=== PATIENT | female | born 1975 | race Two or more races ===

== ENCOUNTER 2021-11-18 12:15 | Inpatient (IN) | payer OTHER ==
[~2021-11-18] VITALS: Ht 162.6 cm; Wt 85.7 kg
[2021-11-19] MEDS ORDERED: ELIQUIS2.5 MG PO (08:00)
[2021-11-19] MEDS ORDERED: MIDODRINE HCL10 MG PO (08:01)
[2021-11-19] MEDS ORDERED: ADVIL PO (08:02)
[2021-11-19] MEDS ORDERED: HORIZANT300 MG PO (08:02)
[2021-11-19] MEDS ORDERED: VITAMIN D PO (08:03)
[2021-11-19] MEDS ORDERED: NORFLEX PO (08:03)
[2021-11-19] MEDS ORDERED: IRON PO (08:04)
[2021-11-19] MEDS ORDERED: VITAMIN C100 MG PO (08:05)
[2021-11-21] MEDS ORDERED: FLUOXETINE HCL40 MG (08:27)
[2021-11-21] MEDS ORDERED: AMITRIPTYLINE H75 MG (08:27)
[2021-11-21] MEDS ORDERED: EZETIMIBE10 MG (08:27)
[2021-11-21] MEDS ORDERED: ALPRAZOLAM0.5 MG (08:27)
[2021-11-21] MEDS ORDERED: HYDROCHLOROTH12.5 MG (08:27)
[2021-11-21] MEDS ORDERED: GABAPENTIN300 M2 (08:28)
[2021-11-21] MEDS ORDERED: DICLOFENAC EPO1 EACH (08:28)
[2021-11-21] MEDS ORDERED: TRAMADOL HCL50 MG (08:28)
[2021-11-21] MEDS ORDERED: DAFLONEX-XL 11300 MG (08:28)
[2021-11-21] MEDS ORDERED: VITAMIN D310 MC4 (08:30)
[2021-11-21] MEDS ORDERED: IRON236 MG (08:30)
[2021-11-21] MEDS ORDERED: NORFLEX100MG (08:30)
== END 2021-11-22 11:56 | disposition home or self-care (01) | DRG 743 ==
LOC: OB/GYN 11-20 07:00 → O/R 11-20 07:35 → OB/GYN 11-20 07:35 → O/R 11-20 21:00 → OB/GYN 11-20 21:10
PROVIDERS: ADMIT Specialist; ATTEND Specialist
PROC: 0UT70ZZ Resection of Bilateral Fallopian Tubes, Open Approach (ICD-10-PCS; 2021-11-20)
PROC: 0UT20ZZ Resection of Bilateral Ovaries, Open Approach (ICD-10-PCS; 2021-11-20)
PROC: 0UT90ZZ Resection of Uterus, Open Approach (ICD-10-PCS; principal; 2021-11-20 07:00)
DX: D25.1 Intramural leiomyoma of uterus (principal); D25.2 Subserosal leiomyoma of uterus; Z20.822 Contact with and (suspected) exposure to COVID-19; N71.1 Chronic inflammatory disease of uterus; N83.11 Corpus luteum cyst of right ovary; N83.292 Other ovarian cyst, left side